=== PATIENT | female | born 1940 | race Two or more races ===

== ENCOUNTER 2023-10-10 18:04 | Inpatient (IN) | payer OTHER ==
[~2023-10-10] VITALS: Ht 167.6 cm; Wt 106.6 kg
[~2023-10-10 18:04] MED LIST: ANTIVERT12.5 MG; ATORVASTATIN CA20 MG; CARTIA XT240 MG; FOLIC ACID1 MG; GLUMETZA1000 MG; GLYBURIDE1.25 MG; LANSOPRAZOLE30 MG; LISINOPRIL2.5 MG; NEURONTIN300 MG; TRAMADOL HCL50 MG PO
--- NOTE | 2023-10-10 18:42 | NUR ---
SE RECIBE PTE ALERTA Y ORIENTADA X3 LA CUAL REFIERE VENIR POR MAREOS DESDE ROD SE MIDEN S/V, DXT Y SE REALIZA EKG A PTE. SE PRESENTA EKG A PTE MUSE. PTE AL MOMENTO DE TRIAGE SATURANDO 89% SE OBSERVA [place] ORACIONES COMPLETAS. PTE SE COLOCA EN FLORINDA EN COMPANIA DE FAMILIAR.
--- NOTE | 2023-10-10 21:27 | NUR ---
PACIENTE ALERTA Y ORIENTADO X3. SE EXTRAEN MUESTRAS DE LABORATORIO MERARY ORDEN MEDICA. PACIENTE EN ESPERA DE RESULTADOS.
[2023-10-10 21:30] LABS: HEMATOCRIT 31.7 % (36.0-45.00); HEMOGLOBIN 10.3 g/dL (12.0-15.00); MEAN CELL VOLUME 88.7 fL (80.00-100.00); MEAN CORPUSCULAR HEMOGLOBIN 28.9 pg (27.00-32.0); MEAN CORPUSCULAR HGB CONC 32.6 g/dl (32.0-36.0); PLATELET COUNT 303 K/uL (150-450); RED BLOOD COUNT 3.57 M/uL (4.00-6.00); RED CELL DISTRIBUTION WIDTH 14.6 % (11.5-14.5)
[2023-10-10 21:40] LABS: URINE APPEARANCE Cloudy; URINE BILIRRUBIN Negative (NEGATIVE); URINE BLOOD Negative; URINE COLOR Yellow; URINE GLUCOSE Negative (NEGATIVE); URINE LEUKOCYTE Small; URINE NITRATE Negative; URINE UROBILINOGEN 0.2 E.U./dl
[2023-10-10 21:43] LABS: URINE BACTERIA 7345.4 uL (0.0-1933); URINE EPITHELIAL CELLS 67.4 uL (0.0-38.8); URINE RBC 2.1 uL (0.0-20.8); URINE WBC 105.5 uL (0.0-23.2)
[2023-10-10 21:44] LABS: URINE PROTEIN 300 (NEGATIVE)
[2023-10-10 21:50] LABS: ALBUMIN 3.2 gm/dL (3.4-5.0); BILIRUBIN TOTAL 0.19 mg/dL (0.3-1.2); CALCIUM 9.8 mg/dL (8.5-10.1); CREATININE SERUM 2.92 mg/dL (0.55-1.02); GFR 15.37; GLOBULINA 4.5 G/DL (2.4-3.5); POTASSIUM 5.75 mEq/L (3.5-5.1); TOTAL PROTEIN 7.7 gm/dL (6.4-8.2)
[2023-10-10] MEDS ORDERED: 0.9 % SODIUM CHLORIDE 1,000 ML IV SCH (23:00)
[2023-10-10] MEDS ORDERED: CIPROFLOXACIN IN 5 % DEXTROSE 200 ML IV SCH (23:04)
[2023-10-10] MEDS ORDERED: ACETAMINOPHEN 500 MG GEL..CAP PO PRN (23:15)
[2023-10-10] MEDS ORDERED: INSULIN LISPRO 1,000 UNIT/10 ML UNITS SUBCUTANEO PRN (23:15)
[2023-10-10] MEDS ORDERED: DEXTROSE 50 % IN WATER 0.5 G/ML DISP.SYRIN IV PRN (23:15)
[2023-10-10] MEDS ORDERED: ONDANSETRON HCL 4 MG in 0.9 % SODIUM CHLORIDE 50 ML IV PRN (23:15)
[2023-10-11 01:41] LABS: ABG PH 7.295 (7.35-7.45); ABG pCO2 54.3 mmHg (35-45)
[2023-10-11 01:42] LABS: ABG PO2 63.4 mmHg (80-100); BASE EXCESS -1.7 mmol/l; BICARBONATE 25.8 mmol/l (23-25); SaO2 88.8 %; Tco2 27.4 mmol/l; allen test SATISFACTORY; o2 21 %; puncture site RADIAL RIGHT
[2023-10-11 04:32] LABS: D DIMER 1.93 MG/L; INR < 0.93; PROTHROMBIN TIME 9.8 SECONDS (9.0-11.5)
[2023-10-11 08:11] LABS: MAGNESIUM 3.1 mg/dL (1.8-2.4); PHOSPHOROUS 4.7 mg/dL (2.5-4.9); TSH 2.84 uIU/mL (0.358-3.74)
[2023-10-11] MEDS ORDERED: ENOXAPARIN SODIUM 30 MG/0.3 ML SYRINGE SUBCUTANEO SCH (09:00)
[2023-10-11] MEDS ORDERED: FAMOTIDINE/PF 20 MG in 0.9 % SODIUM CHLORIDE 8 ML IV PUSH SCH (09:00)
[2023-10-11] MEDS ORDERED: ATORVASTATIN CALCIUM 20 MG TABLET PO SCH (09:00)
[2023-10-11] MEDS ORDERED: IRON FUM,PS/FOLIC/BCOMP,C NO.9 1 CAP CAPSULE PO SCH (09:00)
[2023-10-11] MEDS ORDERED: DILTIAZEM HCL 240 MG CAP.SR.24H PO SCH (09:00)
[2023-10-12] MEDS ORDERED: CIPROFLOXACIN IN 5 % DEXTROSE 200 ML IV SCH (09:00)
[2023-10-12 13:01] LABS: ABG PH 7.319 (7.35-7.45); ABG PO2 68.7 mmHg (80-100); ABG pCO2 47.8 mmHg (35-45); BASE EXCESS -25 mmol/l; SaO2 91.5 %
[2023-10-12 13:02] LABS: Tco2 25.5 mmol/l; allen test SATISFACTORY; puncture site RADIAL RIGHT
[2023-10-12 13:03] LABS: o2 21 %
[2023-10-12 14:27] LABS: HEMATOCRIT 28.8 % (36.0-45.00); HEMOGLOBIN 9.7 g/dL (12.0-15.00); MEAN CELL VOLUME 87.9 fL (80.00-100.00); MEAN CORPUSCULAR HEMOGLOBIN 29.5 pg (27.00-32.0); MEAN CORPUSCULAR HGB CONC 33.5 g/dl (32.0-36.0); PLATELET COUNT 267 K/uL (150-450); RED BLOOD COUNT 3.28 M/uL (4.00-6.00); RED CELL DISTRIBUTION WIDTH 14.4 % (11.5-14.5)
[2023-10-12 14:57] LABS: ALBUMIN 2.9 gm/dL (3.4-5.0); BILIRUBIN TOTAL 0.29 mg/dL (0.3-1.2); CALCIUM 8.9 mg/dL (8.5-10.1); CREATININE SERUM 2.97 mg/dL (0.55-1.02); GFR 15.08; GLOBULINA 3.7 G/DL (2.4-3.5); POTASSIUM 5.66 mEq/L (3.5-5.1); TOTAL PROTEIN 6.6 gm/dL (6.4-8.2)
[2023-10-12] MEDS ORDERED: SODIUM POLYSTYRENE SULFONATE 15 G/4 TSP TSP PO SCH (21:16)
[2023-10-13 06:07] LABS: ALBUMIN 2.9 gm/dL (3.4-5.0); CALCIUM 8.8 mg/dL (8.5-10.1); CREATININE SERUM 3.36 mg/dL (0.55-1.02); GFR 13.08; PHOSPHOROUS 4.6 mg/dL (2.5-4.9)
[2023-10-13 06:28] LABS: POTASSIUM 5.54 mEq/L (3.5-5.1)
[2023-10-14] MEDS ORDERED: NIFEDIPINE 30 MG TAB.SA.OSM PO SCH (16:37)
[2023-10-14] MEDS ORDERED: hydrALAZINE HCL 25 MG TABLET PO STA (16:37)
[2023-10-14] MEDS ORDERED: hydrALAZINE HCL 20 MG VIAL IV PRN (16:45)
[2023-10-15] MEDS ORDERED: hydrALAZINE HCL 25 MG TABLET PO SCH (05:00)
[2023-10-15 09:16] LABS: BILIRUBIN TOTAL 0.37 mg/dL (0.3-1.2); CALCIUM 8.5 mg/dL (8.5-10.1); CREATININE SERUM 2.46 mg/dL (0.55-1.02); GFR 18.74; POTASSIUM 4.25 mEq/L (3.5-5.1)
== END 2023-10-15 19:22 | disposition home or self-care (01) | DRG 690 ==
LOC: ER 18:05 → MEDI 23:55
PROVIDERS: Emergency Medicine; General Practice; Internal Medicine Nephrology; ADMIT Internal Medicine; ATTEND Internal Medicine
DX: N39.0 Urinary tract infection, site not specified (principal); N17.9 Acute kidney failure, unspecified; I10 Essential (primary) hypertension; N28.9 Disorder of kidney and ureter, unspecified; E11.9 Type 2 diabetes mellitus without complications; Z79.4 Long term (current) use of insulin; E03.9 Hypothyroidism, unspecified; D64.9 Anemia, unspecified

== ENCOUNTER 2024-10-07 13:26 | Inpatient (IN) | payer OTHER ==
[~2024-10-07] VITALS: Ht 165.1 cm; Wt 108.9 kg
--- NOTE | 2024-10-07 14:12 | NUR ---
PACIENTE ALERTA Y ORIENTADA X3 QUIEN REFIERE QUE DESDE ROD SIENTE DEBILIDAD, MAREOS, SOB Y VOMITOS. SE MONITOREAN S/V Y SE UBICA PACIENTE.
--- NOTE | 2024-10-07 14:30 | NUR ---
PACIENTE EVALUADA POR MD OROSCOIEN ORDENA TRATAMIENTO MEDICO, SE LE ORIENTA A PACIENTE SOBRE EL MISMO Y REFIERE ENTENDER, SE CONECTA PACIENTE A MONITOR CARDIACO Y OXIMETRIA DE PULSO CONTINUA. SE CANALIZA PACIENTE BAJO MEDIDAS ASEPTICAS. SE LE COLECTAN MUESTRAS DE LABORATORIO. ESTUDIO REALIZADO POR PERSONA CORRESPONDIENTE.
[2024-10-07 15:22] LABS: HEMATOCRIT 27.6 % (36.0-45.00); MEAN CELL VOLUME 89.9 fL (80.00-100.00); PLATELET COUNT 312 K/uL (150-450); RED BLOOD COUNT 3.07 M/uL (4.00-6.00); RED CELL DISTRIBUTION WIDTH 14.3 % (11.5-14.5)
[2024-10-07] MEDS ORDERED: CARVEDILOL3.125 M1 PO (15:23)
[2024-10-07] MEDS ORDERED: GLIMEPIRIDE1 M1 PO (15:23)
[2024-10-07 15:24] LABS: MEAN CORPUSCULAR HEMOGLOBIN 28.6 pg (27.00-32.0)
[2024-10-07] MEDS ORDERED: DILTIAZEM ER300 MG PO (15:24)
[2024-10-07] MEDS ORDERED: LOSARTAN POTASS50 MG PO (15:24)
[2024-10-07] MEDS ORDERED: TRADJENTA5 MG PO (15:24)
[2024-10-07 15:25] LABS: HEMOGLOBIN 8.8 g/dL (12.0-15.00)
[2024-10-07] MEDS ORDERED: TIROSINT13 MCG PO (15:25)
[2024-10-07 15:31] LABS: INR 0.98; PARTIAL THROMBOPLASTIN TIME 24.8 SECONDS (22.0-34.0); PROTHROMBIN TIME 10.7 SECONDS (9.0-11.5)
[2024-10-07 15:41] LABS: ALBUMIN 2.6 gm/dL (3.4-5.0); BILIRUBIN TOTAL 0.19 mg/dL (0.3-1.2); CALCIUM 8.8 mg/dL (8.5-10.1); GLOBULINA 4.5 G/DL (2.4-3.5); TOTAL PROTEIN 7.1 gm/dL (6.4-8.2)
[2024-10-07 15:43] LABS: GFR 10.85
[2024-10-07 15:45] LABS: CREATININE SERUM 3.94 mg/dL (0.55-1.02)
[2024-10-07 15:47] LABS: POTASSIUM 6.78 mEq/L (3.5-5.1)
--- NOTE | 2024-10-07 16:19 | NUR ---
1500 SE RECIBE PACIENTE ALERTA Y ORIENTADA X3, UBICADA EN CAMA #3 AREA DE CRITICO. SE OBSERVA PACIENTE CON BPAP EN PARAMETROS EN I: 14, E: 6, FO2: 100 Y R: 18. SE OBSERVAN DOS CANALIZACIONES EN BRAZO DERECHO QUE SE ENCUENTRAN PATENTES, LIBRES DE EDEMA Y PROCESOS INFECCIOSOS. PACIENTE SE ENCUENTRA CONECTADA A MONITOR CARDIACO Y OXIMETRIA DE PULSO CONTINUA. SE MANTIENE EN OBSERVACION POR CAMBIOS SIGNIFICATIVOS EN [place] CONDICION.
[2024-10-07 17:57] VITALS: BP 124/72; O2SAT 95
[2024-10-07 18:01] VITALS: BP 124/72
[2024-10-07] MEDS ORDERED: DEXTROSE 50 % IN WATER 0.5 G/ML VIAL IV ONE (18:45)
[2024-10-07] MEDS ORDERED: NITROGLYCERIN IN 5 % DEXTROSE 250 ML IV SCH (18:45)
[2024-10-07] MEDS ORDERED: FUROsemide 40 MG/4 ML VIAL IV ONE (18:45)
[2024-10-07] MEDS ORDERED: INSULIN REGULAR, HUMAN 1,000 UNIT/10 ML UNITS IV ONE (18:45)
[2024-10-07] MEDS ORDERED: SODIUM POLYSTYRENE SULFONATE 30G/8 TSP PO ONE (18:45)
[2024-10-07] MEDS ORDERED: CALCIUM GLUCONATE 100 MG/ML VIAL IV ONE (18:45)
[2024-10-07 19:02] LABS: ABG PO2 300.6 mmHg (80-100); BASE EXCESS -5.2 mmol/l; BICARBONATE 24.1 mmol/l (23-25); SaO2 99.8 %
[2024-10-07] MEDS ORDERED: IPRATROPIUM BROMIDE 0.5 MG/2.5 ML AMPUL.NEB IH SCH (19:29)
[2024-10-07] MEDS ORDERED: INSULIN LISPRO 1,000 UNIT/10 ML UNITS SUBCUTANEO PRN (19:45)
[2024-10-07] MEDS ORDERED: DEXTROSE 50 % IN WATER 0.5 G/ML DISP.SYRIN IV PRN (19:45)
[2024-10-07] MEDS ORDERED: ACETAMINOPHEN 500 MG GEL..CAP PO PRN (19:45)
[2024-10-07 20:46] LABS: ABG PH 7.256 (7.35-7.45); ABG pCO2 56.2 mmHg (35-45); BASE EXCESS -3.6 mmol/l; BICARBONATE 24.4 mmol/l (23-25); Tco2 26.1 mmol/l
[2024-10-07 21:04] LABS: ABG PO2 45.8 mmHg (80-100); allen test SATISFACTORY; o2 21 %; puncture site RADIAL RIGHT
[2024-10-07 21:06] LABS: allen test SATISFACTORY; o2 100 %; puncture site RADIAL LEFT
[2024-10-07 21:46] LABS: URINE APPEARANCE Clear; URINE BILIRRUBIN Negative (NEGATIVE); URINE BLOOD Negative; URINE COLOR Yellow; URINE KETONE Negative (NEGATIVE); URINE LEUKOCYTE Negative; URINE NITRATE Negative; URINE UROBILINOGEN 0.2 E.U./dl
[2024-10-07 21:53] LABS: URINE BACTERIA 210.4 uL (0.0-1933); URINE CAST 9.72 uL (0.0-1.40); URINE EPITHELIAL CELLS 8.3 uL (0.0-38.8)
[2024-10-07 22:01] LABS: URINE GLUCOSE 100 MG/DL (NEGATIVE); URINE PROTEIN 300 (NEGATIVE); URINE RBC 0.7 uL (0.0-20.8)
[2024-10-07 23:00] VITALS: BP 96/75; O2SAT 100
[2024-10-08] VITALS (23 sets, daily range): BP systolic 119–168; BP diastolic 48–97; O2SAT 95–100
[2024-10-08] MEDS ORDERED: FUROsemide 20 MG/2 ML VIAL IV SCH (01:00)
[2024-10-08] MEDS ORDERED: LEVOTHYROXINE SODIUM 137 MCG TABLET PO SCH (06:00)
[2024-10-08] MEDS ORDERED: INSULIN LISPRO 1,000 UNIT/10 ML UNITS SUBCUTANEO PRN (07:30)
[2024-10-08 08:03] LABS: CALCIUM 8.7 mg/dL (8.5-10.1); TSH 2.87 uIU/mL (0.358-3.74)
[2024-10-08] MEDS ORDERED: ENOXAPARIN SODIUM 30 MG/0.3 ML SYRINGE SUBCUTANEO SCH (09:00)
[2024-10-08] MEDS ORDERED: SODIUM POLYSTYRENE SULFONATE 15 G/4 TSP TSP PO SCH (09:00)
[2024-10-08] MEDS ORDERED: DILTIAZEM HCL 300 MG CAP.SR.24H PO SCH (09:00)
[2024-10-08] MEDS ORDERED: FAMOTIDINE/PF 20 MG in 0.9 % SODIUM CHLORIDE 8 ML IV PUSH SCH (09:00)
[2024-10-08 09:25] LABS: CREATININE SERUM 3.99 mg/dL (0.55-1.02); GFR 10.7; POTASSIUM 6.74 mEq/L (3.5-5.1)
[2024-10-08 11:10] LABS: ABG PH 7.271 (7.35-7.45); ABG PO2 102.3 mmHg (80-100); ABG pCO2 55.8 mmHg (35-45); SaO2 96.7 %
[2024-10-08 11:11] LABS: BASE EXCESS -2.8 mmol/l; BICARBONATE 25.1 mmol/l (23-25); Tco2 26.8 mmol/l; allen test SATISFACTORY; puncture site RADIAL RIGHT
[2024-10-08 11:12] LABS: o2 50 %
[2024-10-08] MEDS ORDERED: CITRIC ACID/SODIUM CITRATE 30 ML BLIST.PACK PO SCH (17:00)
[2024-10-09] VITALS (15 sets, daily range): BP systolic 117–159; BP diastolic 48–86; O2SAT 95–100
[2024-10-09 06:09] LABS: INR 1.02; PARTIAL THROMBOPLASTIN TIME 25.2 SECONDS (22.0-34.0); PROTHROMBIN TIME 11.1 SECONDS (9.0-11.5)
[2024-10-09 06:19] LABS: ALBUMIN 2.4 gm/dL (3.4-5.0); CREATININE SERUM 3.88 mg/dL (0.55-1.02); GFR 11.05; PHOSPHOROUS 4.8 mg/dL (2.5-4.9); POTASSIUM 5.9 mEq/L (3.5-5.1); URIC ACID 8.1 mg/dL (2.5-7.5)
[2024-10-09 11:23] LABS: ABG PH 7.272 (7.35-7.45); ABG PO2 82.8 mmHg (80-100); ABG pCO2 55.4 mmHg (35-45); BASE EXCESS -2.8 mmol/l; SaO2 94.1 %; Tco2 26.7 mmol/l
[2024-10-09 13:43] LABS: allen test SATISFACTORY; o2 32 %; puncture site RADIAL RIGHT
[2024-10-10] VITALS (14 sets, daily range): BP systolic 113–178; BP diastolic 46–83; O2SAT 93–100
[2024-10-10 06:59] LABS: ALBUMIN 2.5 gm/dL (3.4-5.0); BILIRUBIN TOTAL 0.35 mg/dL (0.3-1.2); CALCIUM 8.9 mg/dL (8.5-10.1); CREATININE SERUM 3.63 mg/dL (0.55-1.02); GFR 11.93; GLOBULINA 3.5 G/DL (2.4-3.5); POTASSIUM 5.29 mEq/L (3.5-5.1)
[2024-10-10] MEDS ORDERED: ISOSORBIDE MONONITRATE 30 MG TABLET PO SCH (09:00)
[2024-10-10 10:04] LABS: ABG PH 7.347 (7.35-7.45); ABG PO2 109.5 mmHg (80-100); ABG pCO2 47.8 mmHg (35-45); BASE EXCESS -0.6 mmol/l; BICARBONATE 25.6 mmol/l (23-25); SaO2 97.9 %; Tco2 27.1 mmol/l
[2024-10-10 10:35] LABS: HEMATOCRIT 26.6 % (36.0-45.00); MEAN CELL VOLUME 89.5 fL (80.00-100.00); PLATELET COUNT 322 K/uL (150-450); RED BLOOD COUNT 2.97 M/uL (4.00-6.00); RED CELL DISTRIBUTION WIDTH 13.8 % (11.5-14.5)
[2024-10-10 10:39] LABS: HEMOGLOBIN 8.8 g/dL (12.0-15.00); MEAN CORPUSCULAR HEMOGLOBIN 29.6 pg (27.00-32.0)
[2024-10-10 11:20] LABS: allen test SATISFACTORY; o2 36 %; puncture site RADIAL RIGHT
[2024-10-10 17:30] LABS: TP PLEURAL FLUID 1.5 g/dl
[2024-10-10 17:41] LABS: PLEURAL FLUID APPEARANCE HAZY; PLEURAL FLUID COLOR YELLOW
[2024-10-10 18:22] LABS: MONONUCLEAR 95 %; POLYMORPHONUCLEAR 5 %
[2024-10-11] VITALS (8 sets, daily range): BP systolic 152–178; BP diastolic 55–71; O2SAT 82–99
[2024-10-11 06:26] LABS: HEMATOCRIT 27.7 % (36.0-45.00); HEMOGLOBIN 9.2 g/dL (12.0-15.00); MEAN CELL VOLUME 88.3 fL (80.00-100.00); MEAN CORPUSCULAR HEMOGLOBIN 29.3 pg (27.00-32.0); MEAN CORPUSCULAR HGB CONC 33.2 g/dl (32.0-36.0); PLATELET COUNT 349 K/uL (150-450); RED BLOOD COUNT 3.14 M/uL (4.00-6.00)
[2024-10-11 06:46] LABS: ALBUMIN 2.6 gm/dL (3.4-5.0); BILIRUBIN TOTAL 0.45 mg/dL (0.3-1.2); CREATININE SERUM 3.37 mg/dL (0.55-1.02); GLOBULINA 3.8 G/DL (2.4-3.5); POTASSIUM 4.56 mEq/L (3.5-5.1); TOTAL PROTEIN 6.4 gm/dL (6.4-8.2)
[2024-10-12] VITALS (9 sets, daily range): BP systolic 131–155; BP diastolic 57–68; O2SAT 90–100
[2024-10-12 05:49] LABS: ALBUMIN 2.5 gm/dL (3.4-5.0); BILIRUBIN TOTAL 0.34 mg/dL (0.3-1.2); CALCIUM 8.8 mg/dL (8.5-10.1); CREATININE SERUM 3.56 mg/dL (0.55-1.02); GFR 12.2; POTASSIUM 4.67 mEq/L (3.5-5.1); TOTAL PROTEIN 6.5 gm/dL (6.4-8.2)
[2024-10-12 08:19] LABS: HEMATOCRIT 28.2 % (36.0-45.00); HEMOGLOBIN 9.1 g/dL (12.0-15.00); MEAN CELL VOLUME 90.1 fL (80.00-100.00); MEAN CORPUSCULAR HGB CONC 32.2 g/dl (32.0-36.0); PLATELET COUNT 320 K/uL (150-450); RED BLOOD COUNT 3.13 M/uL (4.00-6.00); RED CELL DISTRIBUTION WIDTH 14.1 % (11.5-14.5)
[2024-10-12] MEDS ORDERED: FAMOtidine 20 MG TABLET PO SCH (09:00)
[2024-10-12 09:33] LABS: ABG PH 7.353 (7.35-7.45); ABG pCO2 59.1 mmHg (35-45); BASE EXCESS 4.7 mmol/l; BICARBONATE 32.1 mmol/l (23-25); SaO2 77.8 %; Tco2 33.9 mmol/l
[2024-10-12 12:08] LABS: ABG PO2 43.9 mmHg (80-100); allen test SATISFACTORY; o2 21 %; puncture site RADIAL RIGHT
[2024-10-12 13:06] LABS: ABG PH 7.359 (7.35-7.45); ABG pCO2 60.2 mmHg (35-45)
[2024-10-12 13:07] LABS: ABG PO2 46.9 mmHg (80-100); BASE EXCESS 5.7 mmol/l; BICARBONATE 33.2 mmol/l (23-25); SaO2 81.4 %; Tco2 35.1 mmol/l
[2024-10-12 13:08] LABS: allen test SATISFACTORY; o2 21 %; puncture site RADIAL RIGHT
[2024-10-13 01:59] VITALS: BP 155/70; O2SAT 98
[2024-10-13 02:00] VITALS: O2SAT 100
[2024-10-13 05:47] VITALS: O2SAT 98
[2024-10-13 08:50] VITALS: BP 129/57; O2SAT 95
[2024-10-13] MEDS ORDERED: INSULIN NPH HUMAN ISOPHANE 1,000 UNITS/10 ML UNITS SUBCUTANEO SCH (09:00)
[2024-10-13 09:08] VITALS: O2SAT 98
[2024-10-13 16:47] VITALS: BP 148/60
[2024-10-13] MEDS ORDERED: ACETAZOLAMIDE SODIUM 500 MG VIAL IV SCH (17:00)
[2024-10-14 01:01] VITALS: BP 160/69; O2SAT 99
[2024-10-14 05:38] LABS: HEMATOCRIT 27.6 % (36.0-45.00); MEAN CELL VOLUME 89.5 fL (80.00-100.00); MEAN CORPUSCULAR HGB CONC 32.2 g/dl (32.0-36.0); PLATELET COUNT 323 K/uL (150-450); RED BLOOD COUNT 3.08 M/uL (4.00-6.00); RED CELL DISTRIBUTION WIDTH 13.9 % (11.5-14.5)
[2024-10-14 05:41] LABS: HEMOGLOBIN 8.9 g/dL (12.0-15.00); MEAN CORPUSCULAR HEMOGLOBIN 28.8 pg (27.00-32.0)
[2024-10-14 05:43] LABS: ALBUMIN 2.4 gm/dL (3.4-5.0); BILIRUBIN TOTAL 0.42 mg/dL (0.3-1.2); CALCIUM 8.7 mg/dL (8.5-10.1); CREATININE SERUM 3.52 mg/dL (0.55-1.02); GFR 12.36; GLOBULINA 3.9 G/DL (2.4-3.5); POTASSIUM 4.1 mEq/L (3.5-5.1); TOTAL PROTEIN 6.3 gm/dL (6.4-8.2)
[2024-10-14 09:24] VITALS: BP 150/72; O2SAT 96
[2024-10-14 10:28] VITALS: O2SAT 95
[2024-10-14 13:51] VITALS: O2SAT 90
[2024-10-14 16:10] VITALS: BP 169/66; O2SAT 97
[2024-10-14 17:06] VITALS: O2SAT 99
[2024-10-15] VITALS (7 sets, daily range): BP systolic 154–162; BP diastolic 63–82; O2SAT 90–100
[2024-10-15 07:58] LABS: CALCIUM 8.6 mg/dL (8.5-10.1); CREATININE SERUM 3.63 mg/dL (0.55-1.02); GFR 11.93; POTASSIUM 4.78 mEq/L (3.5-5.1)
[2024-10-15 09:20] LABS: ABG PH 7.352 (7.35-7.45)
[2024-10-15 09:22] LABS: BASE EXCESS 5.9 mmol/l; BICARBONATE 33.6 mmol/l (23-25); SaO2 84.5 %; Tco2 35.5 mmol/l; allen test SATISFACTORY; o2 21 %; puncture site RADIAL LEFT
[2024-10-15] MEDS ORDERED: INSULIN LISPRO 1,000 UNIT/10 ML UNITS SUBCUTANEO SCH (12:00)
[2024-10-15] MEDS ORDERED: FUROsemide 20 MG/2 ML VIAL IV SCH (17:00)
[2024-10-16] VITALS (7 sets, daily range): BP systolic 147–163; BP diastolic 72–88; O2SAT 90–100
[2024-10-16] MEDS ORDERED: BUMETANIDE 0.5 MG TABLET PO SCH (09:00)
[2024-10-17] VITALS (8 sets, daily range): BP systolic 148–157; BP diastolic 71–75; O2SAT 90–96
[2024-10-17 06:23] LABS: HEMATOCRIT 28.8 % (36.0-45.00); HEMOGLOBIN 9.2 g/dL (12.0-15.00); MEAN CELL VOLUME 89.9 fL (80.00-100.00); MEAN CORPUSCULAR HEMOGLOBIN 28.7 pg (27.00-32.0); MEAN CORPUSCULAR HGB CONC 31.9 g/dl (32.0-36.0); PLATELET COUNT 386 K/uL (150-450); RED BLOOD COUNT 3.21 M/uL (4.00-6.00); RED CELL DISTRIBUTION WIDTH 13.8 % (11.5-14.5)
[2024-10-17 06:54] LABS: CALCIUM 9.2 mg/dL (8.5-10.1); CREATININE SERUM 3.38 mg/dL (0.55-1.02); GFR 12.96; POTASSIUM 4.74 mEq/L (3.5-5.1)
[2024-10-17] MEDS ORDERED: INSULIN NPH HUMAN ISOPHANE 1,000 UNITS/10 ML UNITS SUBCUTANEO SCH (09:00)
[2024-10-17 15:57] LABS: ABG PH 7.401 (7.35-7.45); ABG pCO2 49.4 mmHg (35-45)
[2024-10-17 15:58] LABS: BASE EXCESS 4.2 mmol/l; Tco2 31.6 mmol/l; allen test SATISFACTORY; o2 21 %; puncture site RADIAL LEFT
[2024-10-18] VITALS (8 sets, daily range): BP systolic 127–170; BP diastolic 67–82; O2SAT 90–99
[2024-10-18 04:53] LABS: HEMATOCRIT 28.5 % (36.0-45.00); MEAN CORPUSCULAR HGB CONC 32.2 g/dl (32.0-36.0); PLATELET COUNT 416 K/uL (150-450); RED BLOOD COUNT 3.21 M/uL (4.00-6.00); RED CELL DISTRIBUTION WIDTH 13.7 % (11.5-14.5)
[2024-10-18 04:55] LABS: HEMOGLOBIN 9.2 g/dL (12.0-15.00); MEAN CORPUSCULAR HEMOGLOBIN 28.6 pg (27.00-32.0)
[2024-10-18 05:19] LABS: ALBUMIN 2.5 gm/dL (3.4-5.0); BILIRUBIN TOTAL 0.29 mg/dL (0.3-1.2); CALCIUM 9.2 mg/dL (8.5-10.1); CREATININE SERUM 3.39 mg/dL (0.55-1.02); GFR 12.91; GLOBULINA 4.2 G/DL (2.4-3.5); POTASSIUM 5.15 mEq/L (3.5-5.1); TOTAL PROTEIN 6.7 gm/dL (6.4-8.2)
[2024-10-19 00:31] VITALS: O2SAT 97
[2024-10-19 00:51] VITALS: BP 159/75; O2SAT 98
[2024-10-19 05:48] VITALS: O2SAT 94
[2024-10-19 08:12] VITALS: O2SAT 98
[2024-10-19 08:31] VITALS: BP 161/78; O2SAT 98
== END 2024-10-19 11:22 | disposition home or self-care (01) | DRG 291 ==
LOC: ER 13:26 → ICU-2 19:55 → ICU 10-09 20:42 → MEDI 10-10 17:18
PROVIDERS: Emergency Medicine; General Practice; Internal Medicine; Internal Medicine Critical Care Medicine; Internal Medicine Nephrology; Radiology Vascular & Interventional Radiology; Student in an Organized Health Care Education/Training Program; ADMIT Internal Medicine; ATTEND Internal Medicine
PROC: B246ZZZ Ultrasonography of Right and Left Heart (ICD-10-PCS; 2024-10-07)
PROC: 4A12X4Z Monitoring of Cardiac Electrical Activity, External Approach (ICD-10-PCS; 2024-10-07)
PROC: BB24ZZZ Computerized Tomography (CT Scan) of Bilateral Lungs (ICD-10-PCS; 2024-10-07)
PROC: 3E0F7GC Introduction of Other Therapeutic Substance into Respiratory Tract, Via Natural or Artificial Opening (ICD-10-PCS; 2024-10-08)
PROC: 5A09457 Assistance with Respiratory Ventilation, 24-96 Consecutive Hours, Continuous Positive Airway Pressure (ICD-10-PCS; 2024-10-08)
PROC: 0W993ZZ Drainage of Right Pleural Cavity, Percutaneous Approach (ICD-10-PCS; principal; 2024-10-10)
DX: I50.9 Heart failure, unspecified (principal); J96.01 Acute respiratory failure with hypoxia; J96.02 Acute respiratory failure with hypercapnia; N17.9 Acute kidney failure, unspecified; J91.8 Pleural effusion in other conditions classified elsewhere; N18.4 Chronic kidney disease, stage 4 (severe); I12.9 Hypertensive chronic kidney disease with stage 1 through stage 4 chronic kidney disease, or unspecified chronic kidney disease; E11.22 Type 2 diabetes mellitus with diabetic chronic kidney disease; E11.65 Type 2 diabetes mellitus with hyperglycemia; I48.0 Paroxysmal atrial fibrillation; E87.5 Hyperkalemia; G47.33 Obstructive sleep apnea (adult) (pediatric); E03.9 Hypothyroidism, unspecified; Z88.6 Allergy status to analgesic agent; Z88.0 Allergy status to penicillin; Z79.84 Long term (current) use of oral hypoglycemic drugs; Z66 Do not resuscitate

== ENCOUNTER 2024-11-07 17:28 | Inpatient (IN) | payer OTHER ==
[~2024-11-07] VITALS: Ht 167.6 cm; Wt 108.9 kg
[~2024-11-07 17:28] MED LIST changes: +CARVEDILOL3.125 M1 PO; +DILTIAZEM ER300 MG PO; +GLIMEPIRIDE1 M1 PO; +LOSARTAN POTASS50 MG PO; +TIROSINT13 MCG PO; +TRADJENTA5 MG PO
--- NOTE | 2024-11-07 17:41 | NUR ---
SE RECIBE PTE ALERTA Y ORIENTADA EN AMBULANCIA LA CUAL REFIERE VENIR POR DOLOR CORPORAL, NAUSEAS Y MAREOS. PTE REFIERE KUNAL ESTADO ADMITIDA EN HOSPITAL RECIENTEMENTE. SE MIDEN SV A PTE Y SE UBICA.
[2024-11-07] MEDS ORDERED: 0.9 % SODIUM CHLORIDE 1,000 ML IV SCH (18:45)
--- NOTE | 2024-11-07 19:05 | NUR ---
SE EDUCA A PTE SOBRE TX MEDICO, SE ASHLEE MUESTRAS DE LABORATORIO UTILIZANDO MEDIDAS ASEPTICAS. SE COLOCA H/L LUCY DE EDEMA. SE COLOCA IV FLUIDS MERARY ORDEN MEDICA. SE VERIFICA FLEMING MERARY ORDEN MEDICA. SE NOTIFICA RX PENDIENTE A REALIZAR.
[2024-11-07 19:41] LABS: HEMATOCRIT 29.7 % (36.0-45.00); HEMOGLOBIN 9.2 g/dL (12.0-15.00); MEAN CELL VOLUME 90.7 fL (80.00-100.00); MEAN CORPUSCULAR HEMOGLOBIN 28.2 pg (27.00-32.0); MEAN CORPUSCULAR HGB CONC 31.1 g/dl (32.0-36.0); PLATELET COUNT 303 K/uL (150-450); RED BLOOD COUNT 3.27 M/uL (4.00-6.00); RED CELL DISTRIBUTION WIDTH 15.5 % (11.5-14.5)
[2024-11-07 20:07] LABS: ALBUMIN 2.7 gm/dL (3.4-5.0); BILIRUBIN TOTAL 0.21 mg/dL (0.3-1.2); CALCIUM 8.7 mg/dL (8.5-10.1); GFR 9.58; GLOBULINA 4.3 G/DL (2.4-3.5); POTASSIUM 5.51 mEq/L (3.5-5.1)
[2024-11-07 20:11] LABS: CREATININE SERUM 4.39 mg/dL (0.55-1.02)
[2024-11-07] MEDS ORDERED: SODIUM POLYSTYRENE SULFONATE 15 G/4 TSP TSP PO SCH (20:19)
[2024-11-07] MEDS ORDERED: levoFLOXacin IN DEXTROSE 5 % 500MG/100ML PIGGYBAG IV ONE (20:30)
[2024-11-07] MEDS ORDERED: IPRATROPIUM BROMIDE 0.5 MG/2.5 ML AMPUL.NEB IH SCH (21:45)
[2024-11-07] MEDS ORDERED: SODIUM CHLORIDE 0.45 % 1,000 ML IV SCH (21:45)
[2024-11-07] MEDS ORDERED: FUROsemide 20 MG/2 ML VIAL IV SCH (21:53)
[2024-11-07] MEDS ORDERED: ONDANSETRON HCL 4 MG in 0.9 % SODIUM CHLORIDE 50 ML IV PRN (22:00)
[2024-11-07] MEDS ORDERED: INSULIN LISPRO 1,000 UNIT/10 ML UNITS SUBCUTANEO PRN (22:00)
[2024-11-07] MEDS ORDERED: ACETAMINOPHEN 500 MG GEL..CAP PO PRN (22:00)
[2024-11-07] MEDS ORDERED: DEXTROSE 50 % IN WATER 0.5 G/ML DISP.SYRIN IV PRN (22:00)
[2024-11-07] MEDS ORDERED: IPRATROPIUM BROMIDE 0.5 MG/2.5 ML AMPUL.NEB IH ONE (23:34)
[2024-11-08] VITALS (7 sets, daily range): BP systolic 113–146; BP diastolic 56–72; O2SAT 90–98
[2024-11-08 04:09] LABS: D DIMER 2.88 MG/L
[2024-11-08 04:10] LABS: INR 0.96; PROTHROMBIN TIME 10.5 SECONDS (9.0-11.5)
[2024-11-08] MEDS ORDERED: SODIUM POLYSTYRENE SULFONATE 15 G/4 TSP TSP PO SCH ×2 (05:00→17:00)
[2024-11-08 05:50] LABS: CHOL HDL RATIO 2.7 (0-5.0); MAGNESIUM 2.4 mg/dL (1.8-2.4); PHOSPHOROUS 5.3 mg/dL (2.5-4.9); TSH 0.586 uIU/mL (0.358-3.74)
[2024-11-08] MEDS ORDERED: ATORVASTATIN CALCIUM 40 MG TABLET PO SCH (09:00)
[2024-11-08] MEDS ORDERED: FAMOTIDINE/PF 20 MG in 0.9 % SODIUM CHLORIDE 8 ML IV PUSH SCH (09:00)
[2024-11-08] MEDS ORDERED: ENOXAPARIN SODIUM 30 MG/0.3 ML SYRINGE SUBCUTANEO SCH (09:00)
[2024-11-08] MEDS ORDERED: DILTIAZEM HCL 300 MG CAP.SR.24H PO SCH (09:00)
[2024-11-08 11:47] LABS: URINE APPEARANCE Turbid; URINE BILIRRUBIN Negative (NEGATIVE); URINE BLOOD Moderate; URINE COLOR Yellow; URINE GLUCOSE Negative (NEGATIVE); URINE KETONE Negative (NEGATIVE); URINE LEUKOCYTE Large; URINE NITRATE Positive; URINE UROBILINOGEN 0.2 E.U./dl
[2024-11-08 11:51] LABS: URINE CAST 9.69 uL (0.0-1.40); URINE EPITHELIAL CELLS 58.4 uL (0.0-38.8); URINE RBC 2500.6 uL (0.0-20.8)
[2024-11-08 12:01] LABS: URINE BACTERIA > 9821.5 uL (0.0-1933); URINE PROTEIN 300 (NEGATIVE); URINE WBC > 5548.3 uL (0.0-23.2)
[2024-11-08 12:02] LABS: URINE CRYSTALS MODERATE /HPF; URINE YEAST MODERATE /hpf
[2024-11-09] VITALS (8 sets, daily range): BP systolic 99–141; BP diastolic 46–85; O2SAT 85–98
[2024-11-09] MEDS ORDERED: levoFLOXacin IN DEXTROSE 5 % 500MG/100ML PIGGYBAG IV SCH ×2 (09:00→17:00)
[2024-11-09 14:30] LABS: HEMATOCRIT 28.6 % (36.0-45.00); MEAN CELL VOLUME 90.8 fL (80.00-100.00); MEAN CORPUSCULAR HGB CONC 31.6 g/dl (32.0-36.0); PLATELET COUNT 260 K/uL (150-450); RED BLOOD COUNT 3.15 M/uL (4.00-6.00); RED CELL DISTRIBUTION WIDTH 14.7 % (11.5-14.5)
[2024-11-09 14:56] LABS: HEMOGLOBIN 9.1 g/dL (12.0-15.00); MEAN CORPUSCULAR HEMOGLOBIN 28.8 pg (27.00-32.0)
[2024-11-09 15:06] LABS: ALBUMIN 2.6 gm/dL (3.4-5.0); CALCIUM 8.5 mg/dL (8.5-10.1); PHOSPHOROUS 5.6 mg/dL (2.5-4.9)
[2024-11-09 15:11] LABS: GFR 10.28
[2024-11-09 15:14] LABS: ABG PH 7.328 (7.35-7.45); ABG PO2 93.3 mmHg (80-100); ABG pCO2 52.4 mmHg (35-45); BASE EXCESS 0 mmol/l; BICARBONATE 26.9 mmol/l (23-25); SaO2 96.5 %; Tco2 28.5 mmol/l
[2024-11-09 15:17] LABS: allen test SATISFACTORY; mode VENTURY MASK; o2 50 %; puncture site RADIAL RIGHT
[2024-11-09 15:17] LABS: CREATININE SERUM 4.13 mg/dL (0.55-1.02)
[2024-11-09 15:18] LABS: POTASSIUM 6.06 mEq/L (3.5-5.1)
[2024-11-10] VITALS (9 sets, daily range): BP systolic 132–169; BP diastolic 68–84; O2SAT 89–98
[2024-11-10] MEDS ORDERED: SODIUM POLYSTYRENE SULFONATE 15 G/4 TSP TSP PO SCH (09:00)
[2024-11-10] MEDS ORDERED: ERTAPENEM SODIUM 1,000 MG VIAL IV SCH (09:00)
[2024-11-11] VITALS (10 sets, daily range): BP systolic 139–164; BP diastolic 65–80; O2SAT 80–97
[2024-11-11 07:27] LABS: ALBUMIN 2.4 gm/dL (3.4-5.0); BILIRUBIN TOTAL 0.32 mg/dL (0.3-1.2); CALCIUM 8.4 mg/dL (8.5-10.1); CREATININE SERUM 3.57 mg/dL (0.55-1.02); GFR 12.16; GLOBULINA 3.7 G/DL (2.4-3.5); POTASSIUM 4.45 mEq/L (3.5-5.1); TOTAL PROTEIN 6.1 gm/dL (6.4-8.2)
[2024-11-11] MEDS ORDERED: INSULIN NPH HUM/REG INSULIN HM 1,000 UNIT/10 ML UNITS SUBCUTANEO SCH ×2 (08:00→17:00)
[2024-11-11] MEDS ORDERED: FAMOtidine 20 MG TABLET PO SCH (09:00)
[2024-11-12] VITALS (9 sets, daily range): BP systolic 152–168; BP diastolic 7–85; O2SAT 91–100
[2024-11-12] MEDS ORDERED: LEVOTHYROXINE SODIUM 137 MCG TABLET PO SCH (06:00)
[2024-11-12 08:42] LABS: HEMATOCRIT 28.7 % (36.0-45.00); HEMOGLOBIN 9.4 g/dL (12.0-15.00); MEAN CELL VOLUME 88.8 fL (80.00-100.00); MEAN CORPUSCULAR HGB CONC 32.6 g/dl (32.0-36.0); PLATELET COUNT 274 K/uL (150-450); RED BLOOD COUNT 3.24 M/uL (4.00-6.00); RED CELL DISTRIBUTION WIDTH 14.7 % (11.5-14.5)
[2024-11-12 09:08] LABS: CALCIUM 8.3 mg/dL (8.5-10.1); CREATININE SERUM 3.2 mg/dL (0.55-1.02); GFR 13.8; POTASSIUM 4.05 mEq/L (3.5-5.1)
[2024-11-12 10:10] LABS: ABG PH 7.319 (7.35-7.45); BASE EXCESS 6.2 mmol/l; SaO2 78.2 %; Tco2 37.2 mmol/l
[2024-11-12 14:24] LABS: ABG PH 7.284 (7.35-7.45); ABG PO2 108.1 mmHg (80-100); BASE EXCESS 5.2 mmol/l; BICARBONATE 34.8 mmol/l (23-25); SaO2 97.5 %; Tco2 37.1 mmol/l
[2024-11-12 14:43] LABS: ABG pCO2 75.1 mmHg (35-45)
[2024-11-12 14:45] LABS: allen test SATISFACTORY; mode BPAP; puncture site RADIAL RIGHT
[2024-11-12 14:46] LABS: o2 40 %
[2024-11-12 14:59] LABS: ABG PO2 45.8 mmHg (80-100); ABG pCO2 69.8 mmHg (35-45); allen test SATISFACTORY; mode ROOM AIR; o2 21 %; puncture site RADIAL RIGHT
[2024-11-13] VITALS (8 sets, daily range): BP systolic 149–177; BP diastolic 60–76; O2SAT 92–98
[2024-11-13 07:52] LABS: ABG PH 7.379 (7.35-7.45); ABG PO2 90.6 mmHg (80-100); BASE EXCESS 6.3 mmol/l; BICARBONATE 33.4 mmol/l (23-25); SaO2 96.9 %; Tco2 35.2 mmol/l
[2024-11-13 10:03] LABS: allen test SATISFACTORY; mode BPAP; o2 40 %; puncture site RADIAL RIGHT
[2024-11-13 10:39] LABS: ABG PH 7.376 (7.35-7.45); ABG PO2 70.4 mmHg (80-100); ABG pCO2 56.4 mmHg (35-45); BASE EXCESS 5.4 mmol/l; BICARBONATE 32.3 mmol/l (23-25); SaO2 93.7 %
[2024-11-13] MEDS ORDERED: ACETAZOLAMIDE SODIUM 500 MG VIAL IV SCH (11:00)
[2024-11-13 11:19] LABS: allen test SATISFACTORY; mode VENTURY MASK; o2 40 %; puncture site RADIAL RIGHT
[2024-11-13] MEDS ORDERED: hydrALAZINE HCL 25 MG TABLET PO SCH (13:00)
[2024-11-14] VITALS (9 sets, daily range): BP systolic 173–182; BP diastolic 73–82; O2SAT 94–99
[2024-11-14 06:28] LABS: HEMATOCRIT 27.2 % (36.0-45.00); MEAN CELL VOLUME 87.5 fL (80.00-100.00); MEAN CORPUSCULAR HEMOGLOBIN 28.9 pg (27.00-32.0); PLATELET COUNT 263 K/uL (150-450); RED CELL DISTRIBUTION WIDTH 14.5 % (11.5-14.5)
[2024-11-14 06:58] LABS: ALBUMIN 2.4 gm/dL (3.4-5.0); BILIRUBIN TOTAL 0.37 mg/dL (0.3-1.2); CALCIUM 8.5 mg/dL (8.5-10.1); CREATININE SERUM 3.05 mg/dL (0.55-1.02); GFR 14.59; GLOBULINA 3.4 G/DL (2.4-3.5); POTASSIUM 4.35 mEq/L (3.5-5.1); TOTAL PROTEIN 5.8 gm/dL (6.4-8.2)
[2024-11-14 11:14] LABS: ABG PH 7.423 (7.35-7.45); ABG pCO2 51.1 mmHg (35-45); BASE EXCESS 6.7 mmol/l; BICARBONATE 32.6 mmol/l (23-25); SaO2 90.2 %; Tco2 34.2 mmol/l
[2024-11-14 11:26] LABS: ABG PO2 56.5 mmHg (80-100); allen test SATISFACTORY; puncture site RADIAL RIGHT
[2024-11-14 11:27] LABS: mode ROOM AIR
[2024-11-14 11:30] LABS: o2 21 %
[2024-11-15] VITALS (7 sets, daily range): BP systolic 154–182; BP diastolic 66–78; O2SAT 91–100
[2024-11-15 08:19] LABS: HEMATOCRIT 28.8 % (36.0-45.00); HEMOGLOBIN 9.3 g/dL (12.0-15.00); MEAN CELL VOLUME 88.9 fL (80.00-100.00); MEAN CORPUSCULAR HEMOGLOBIN 28.6 pg (27.00-32.0); MEAN CORPUSCULAR HGB CONC 32.2 g/dl (32.0-36.0); PLATELET COUNT 280 K/uL (150-450); RED BLOOD COUNT 3.24 M/uL (4.00-6.00); RED CELL DISTRIBUTION WIDTH 14.5 % (11.5-14.5)
[2024-11-15 08:58] LABS: ALBUMIN 2.5 gm/dL (3.4-5.0); BILIRUBIN TOTAL 0.36 mg/dL (0.3-1.2); CALCIUM 8.5 mg/dL (8.5-10.1); CREATININE SERUM 2.84 mg/dL (0.55-1.02); GFR 15.84; GLOBULINA 3.8 G/DL (2.4-3.5); POTASSIUM 4.47 mEq/L (3.5-5.1); TOTAL PROTEIN 6.3 gm/dL (6.4-8.2)
[2024-11-16 00:37] VITALS: O2SAT 99
[2024-11-16 02:37] VITALS: BP 178/96; O2SAT 100
[2024-11-16 08:19] LABS: MEAN CORPUSCULAR HEMOGLOBIN 28.2 pg (27.00-32.0); MEAN CORPUSCULAR HGB CONC 31.4 g/dl (32.0-36.0); PLATELET COUNT 297 K/uL (150-450); RED BLOOD COUNT 3.33 M/uL (4.00-6.00); RED CELL DISTRIBUTION WIDTH 14.7 % (11.5-14.5)
[2024-11-16 08:20] LABS: HEMOGLOBIN 9.4 g/dL (12.0-15.00)
[2024-11-16 08:58] LABS: ALBUMIN 2.5 gm/dL (3.4-5.0); CALCIUM 8.7 mg/dL (8.5-10.1); CREATININE SERUM 2.89 mg/dL (0.55-1.02); GFR 15.52; PHOSPHOROUS 3.1 mg/dL (2.5-4.9); POTASSIUM 4.74 mEq/L (3.5-5.1)
[2024-11-16 09:53] VITALS: BP 168/80; O2SAT 95
[2024-11-16 17:46] VITALS: BP 160/70; O2SAT 96
[2024-11-16 22:22] LABS: ABG PH 7.385 (7.35-7.45); ABG pCO2 52.7 mmHg (35-45); BASE EXCESS 4.4 mmol/l; BICARBONATE 30.8 mmol/l (23-25); SaO2 94.4 %; Tco2 32.4 mmol/l; allen test SATISFACTORY; mode ROOM AIR; o2 21 %; puncture site RADIAL LEFT
[2024-11-17 01:08] VITALS: BP 160/80
[2024-11-17 09:14] VITALS: BP 138/79; O2SAT 90
== END 2024-11-17 10:33 | disposition home or self-care (01) | DRG 194 ==
LOC: ER 17:28 → SEC-K 21:50 → MEDJ 21:50
PROVIDERS: General Practice; Internal Medicine; Internal Medicine Nephrology; ADMIT Internal Medicine; ATTEND Internal Medicine
PROC: BB24ZZZ Computerized Tomography (CT Scan) of Bilateral Lungs (ICD-10-PCS; principal; 2024-11-07)
PROC: 3E0F7GC Introduction of Other Therapeutic Substance into Respiratory Tract, Via Natural or Artificial Opening (ICD-10-PCS; 2024-11-08)
PROC: 4A12X4Z Monitoring of Cardiac Electrical Activity, External Approach (ICD-10-PCS; 2024-11-08)
PROC: B246ZZZ Ultrasonography of Right and Left Heart (ICD-10-PCS; 2024-11-09)
PROC: 5A0935A Assistance with Respiratory Ventilation, Less than 24 Consecutive Hours, High Flow/Velocity Cannula (ICD-10-PCS; 2024-11-11)
DX: J18.9 Pneumonia, unspecified organism (principal); J90 Pleural effusion, not elsewhere classified; N17.8 Other acute kidney failure; I48.0 Paroxysmal atrial fibrillation; I11.0 Hypertensive heart disease with heart failure; I50.9 Heart failure, unspecified; E87.5 Hyperkalemia; I12.9 Hypertensive chronic kidney disease with stage 1 through stage 4 chronic kidney disease, or unspecified chronic kidney disease; E11.22 Type 2 diabetes mellitus with diabetic chronic kidney disease; N18.9 Chronic kidney disease, unspecified; R34 Anuria and oliguria; D64.9 Anemia, unspecified; E03.9 Hypothyroidism, unspecified; Z79.4 Long term (current) use of insulin

== ENCOUNTER → 2024-12-12 | Emergency (ER) | payer OTHER ==
[~2024-12-12] VITALS: Ht 170.2 cm; Wt 95.3 kg
[~2024-12-12] MED LIST changes: +CEFTRIAXONE SODIUM 1,000 MG VIAL IV ONE; +CEFTRIAXONE SODIUM 1,000 MG VIAL ONE; +CLINDAMYCIN PHOSPHATE 150 MG/ML (900mg) IV STA; +CLINDAMYCIN PHOSPHATE 150 MG/ML (900mg) ONE; +INSULIN REGULAR, HUMAN 1,000 UNIT/10 ML UNITS IV ONE; +KETOROLAC TROMETHAMINE 30 MG VIAL ONE; +POTASSIUM CHLORIDE IV STA; +VANCOMYCIN HCL 1,000 MG VIAL ONE; +VANCOMYCIN HCL 500 MG VIAL SPEPROC STA; +[UNRECOGNIZED DRUG - OTHER] IV STA
[2024-12-12 17:12] LABS: ABG PH 7.401 (7.35-7.45); ABG PO2 67.9 mmHg (80-100); ABG pCO2 38.7 mmHg (35-45); BICARBONATE 23.5 mmol/l (23-25); SaO2 93.2 %; Tco2 24.7 mmol/l
[2024-12-12 17:31] LABS: allen test SATISFACTORY; mode ROOM AIR; o2 21 %; puncture site RADIAL RIGHT
[2024-12-12 19:05] LABS: BASO % 0.1 % (0.1-1.2); HEMATOCRIT 28.4 % (34.1-44.9); HEMOGLOBIN 9.3 g/dL (11.2-15.7); LYMPH % 2.3 % (19.3-53.1); MEAN CORPUSCULAR HEMOGLOBIN 27.5 pg (25.6-32.2); MONO # 1.34 (0.24-0.82); MONO % 5.1 % (4.7-12.5); NEUT # 23.51 (1.56-6.13); NEUT % 89.4 % (34.0-71.1); PLATELET COUNT 231 K/uL (163-369); RED BLOOD COUNT 3.38 M/uL (3.93-5.22); RED CELL DISTRIBUTION WIDTH 13.8 % (11.6-14.4)
[2024-12-12 19:32] LABS: COVID-19 AG NEGATIVE (NEGATIVE)
[2024-12-12 19:40] LABS: INR 1.07; PARTIAL THROMBOPLASTIN TIME 29.8 SECONDS (22.0-34.0); PROTHROMBIN TIME 11.6 SECONDS (9.0-11.5)
[2024-12-12 19:51] LABS: ALBUMIN 2.4 gm/dL (3.4-5.0); BILIRUBIN TOTAL 0.43 mg/dL (0.3-1.2); GLOBULINA 4.1 G/DL (2.4-3.5); TOTAL PROTEIN 6.5 gm/dL (6.4-8.2)
[2024-12-12 19:54] LABS: INFLUENZA A AG NEGATIVE (NEGATIVE)
[2024-12-12 20:07] LABS: GFR 9.48; POTASSIUM 2.92 mEq/L (3.5-5.1)
[2024-12-12 20:08] LABS: CREATININE SERUM 4.43 mg/dL (0.55-1.02)
[2024-12-12 23:23] LABS: URINE APPEARANCE Cloudy; URINE BILIRRUBIN Negative (NEGATIVE); URINE BLOOD Negative; URINE COLOR Yellow; URINE KETONE Negative (NEGATIVE); URINE LEUKOCYTE Trace; URINE NITRATE Negative; URINE UROBILINOGEN 0.2 E.U./dl
[2024-12-12 23:24] LABS: URINE BACTERIA 280.2 uL (0.0-1933); URINE CAST 9.42 uL (0.0-1.40); URINE RBC 2.3 uL (0.0-20.8); URINE WBC 15.5 uL (0.0-23.2)
[2024-12-12 23:34] LABS: URINE GLUCOSE 100 MG/DL (NEGATIVE); URINE PROTEIN 300 (NEGATIVE)
[2024-12-13 01:30] LABS: ABG PH 7.375 (7.35-7.45); ABG PO2 72.8 mmHg (80-100); ABG pCO2 39.5 mmHg (35-45); BASE EXCESS -2.4 mmol/l; BICARBONATE 22.6 mmol/l (23-25); SaO2 93.9 %; Tco2 23.8 mmol/l
[2024-12-13 02:08] LABS: D DIMER 1.94 MG/L
[2024-12-13 02:23] LABS: INR 1.08; PROTHROMBIN TIME 11.7 SECONDS (9.0-11.5)
[2024-12-13 06:45] LABS: allen test SATISFACTORY; mode ROOM AIR; o2 21 %; puncture site RADIAL RIGHT
[2024-12-13 11:20] LABS: BASO % 0.2 % (0.1-1.2); EOS # 0.02 (0.04-0.54); EOS % 0.1 % (0.7-7.0); HEMATOCRIT 28.7 % (34.1-44.9); LYMPH # 0.54 (1.18-3.74); LYMPH % 2.4 % (19.3-53.1); MEAN CORPUSCULAR HEMOGLOBIN 26.9 pg (25.6-32.2); MONO # 1.17 (0.24-0.82); MONO % 5.2 % (4.7-12.5); NEUT # 20.54 (1.56-6.13); NEUT % 91.7 % (34.0-71.1); PLATELET COUNT 230 K/uL (163-369); RED BLOOD COUNT 3.35 M/uL (3.93-5.22); RED CELL DISTRIBUTION WIDTH 13.9 % (11.6-14.4)
[2024-12-13 12:35] LABS: ALBUMIN 2.2 gm/dL (3.4-5.0); BILIRUBIN TOTAL 0.31 mg/dL (0.3-1.2); BILIRUBIN,CONJUGATED 0.13 mg/dL (0.0-0.2); BILIRUBIN,UNCONJUGATED 0.18 mg/dL (0.0-0.6); CALCIUM 9.3 mg/dL (8.5-10.1); GFR 9.12; POTASSIUM 3.14 mEq/L (3.5-5.1); TOTAL PROTEIN 7.1 gm/dL (6.4-8.2)
[2024-12-13 13:13] LABS: CREATININE SERUM 4.58 mg/dL (0.55-1.02)
== END | disposition designated cancer center or children's hospital (05) ==
LOC: ER 14:20
PROVIDERS: General Practice
DX: E11.65 Type 2 diabetes mellitus with hyperglycemia (principal); Z79.84 Long term (current) use of oral hypoglycemic drugs; Z88.0 Allergy status to penicillin; Z88.6 Allergy status to analgesic agent; E03.8 Other specified hypothyroidism; I12.9 Hypertensive chronic kidney disease with stage 1 through stage 4 chronic kidney disease, or unspecified chronic kidney disease; N18.9 Chronic kidney disease, unspecified; I11.0 Hypertensive heart disease with heart failure; I50.9 Heart failure, unspecified; Z20.822 Contact with and (suspected) exposure to COVID-19
CPT/HCPCS: 36415; 70450; 71045; 82803; 93005; 96365; 99284; J0696; J1815; J1885; J3370; J3490